=== PATIENT | male | born 1990 | race American Indian/Alaskan Native ===

== ENCOUNTER 2018-12-01 23:40 | Emergency (ER) | payer OTHER ==
[2018-12-02] MEDS ORDERED: TORADOL IM ONE (04:01)
--- NOTE | 2018-12-02 04:06 | Emergency Department Report ---
ED General Adult HPI - General Chief complaint: Headache Stated complaint: SHARP PAIN IN HEAD BODY PAIN ASTHMA Time Seen by Provider: 12/02/18 03:54 Source: patient Mode of arrival: Ambulatory Limitations: No Limitations - History of Present Illness Initial comments: Patient is a 28-year-old male who presents to the emergency room with complaints of a frontal headache that began 3 days ago. He has associated rhinorrhea, congestion, generalized body aches. He denies any fever, cough, sore throat. He states he has been taking Goody powder with some relief. He states he does have seasonal allergies and has tried taking Claritin without much relief. He states he has had a sick contact with someone with cold symptoms. He has a past medical history of asthma and bronchitis. He is a nonsmoker, nondrinker, denies drug use. - Related Data Previous Rx's Medication Instructions Recorded Last Taken Type Cetirizine HCl [Zyrtec 10mg tab] 10 mg PO DAILY #30 tablet 12/02/18 Unknown Rx Fluticasone [Flonase] 1 spray NS QDAY #1 bottle 12/02/18 Unknown Rx Allergies Allergy/AdvReac Type Severity Reaction Status Date / Time diphenhydramine Allergy Unknown Verified 12/02/18 00:02 [From Benadryl] Penicillins Allergy Unknown Verified 12/02/18 00:02 tramadol Allergy Unknown Verified 12/02/18 00:02 ED Review of Systems ROS: Stated complaint: SHARP PAIN IN HEAD BODY PAIN ASTHMA Other details as noted in HPI Comment: All other systems reviewed and negative ED Past Medical Hx - Past Medical History Previous Medical History?: Yes Hx Asthma: Yes (bronchitis) - Surgical History Past Surgical History?: No - Social History Smoking Status: Never Smoker Substance Use Type: None - Medications Home Medications: Home Medications Medication Instructions Recorded Confirmed Last Taken Type Cetirizine HCl [Zyrtec 10mg tab] 10 mg PO DAILY #30 tablet 12/02/18 Unknown Rx Fluticasone [Flonase] 1 spray NS QDAY #1 bottle 12/02/18 Unknown Rx ED Physical Exam - General Limitations: No Limitations General appearance: alert, in no apparent distress - Head Head exam: Present: atraumatic, normocephalic - Eye Eye exam: Present: PERRL, EOMI, other (dark circles under the bilateral eyes most likely allergy related, denies trauma ) - ENT ENT exam: Present: normal orophraynx, TM's normal bilaterally, normal external ear exam, other (pale, boggy turbinates bilaterally with clear nasal discharge, no TTP of the sinuses bilaterally) - Neck Neck exam: Present: normal inspection, full ROM. Absent: meningismus - Respiratory Respiratory exam: Present: normal lung sounds bilaterally. Absent: respiratory distress, wheezes, rales, rhonchi, stridor, chest wall tenderness, accessory muscle use, decreased breath sounds, prolonged expiratory - Cardiovascular Cardiovascular Exam: Present: regular rate, normal rhythm, normal heart sounds. Absent: systolic murmur, diastolic murmur, rubs, gallop - Neurological Exam Neurological exam: Present: alert, oriented X3 - Psychiatric Psychiatric exam: Present: normal affect, normal mood - Skin Skin exam: Present: warm, dry, intact ED Course Vital Signs 12/01/18 12/02/18 12/02/18 23:45 04:36 05:05 Temperature 98.3 F Pulse Rate 71 Respiratory 18 20 20 Rate Blood Pressure 128/76 Blood Pressure [Left] O2 Sat by Pulse 97 Oximetry 12/02/18 12/02/18 05:20 05:26 Temperature 98.6 F Pulse Rate 72 Respiratory 20 20 Rate Blood Pressure Blood Pressure 120/66 [Left] O2 Sat by Pulse 98 Oximetry ED Medical Decision Making - Lab Data Vital Signs 12/01/18 23:45 Temperature 98.3 F Pulse Rate 71 Respiratory 18 Rate Blood Pressure 128/76 O2 Sat by Pulse 97 Oximetry - Medical Decision Making Patient is a 28-year-old male who presents to the emergency room with complaints of a frontal headache that began 3 days ago. He has associated rhinorrhea, congestion, generalized body aches. He denies any fever, cough, sore throat. He states he has been taking Goody powder with some relief. He states he does have seasonal allergies and has tried taking Claritin without much relief. He states he has had a sick contact with someone with cold symptoms. He has a past medical history of asthma and bronchitis. He is a nonsmoker, nondrinker, denies drug use. vitals are normal. on exam: pale, boggy turbinates bilaterally with clear nasal discharge, no TTP of the sinuses bilaterally, lung sounds are clear bilaterally without w/r/r. pt given prescription for flonase and zyrtec for allergic rhinitis/seasonal allergies. advised to please take all medication as prescribed. Continue to drink plenty of water. Follow up with your primary care doctor in the next 2-3 days. Return to the emergency room for any new or worsening symptoms. Critical care attestation.: If time is entered above; I have spent that time in minutes in the direct care of this critically ill patient, excluding procedure time. ED Disposition Clinical Impression: Seasonal allergies Allergic rhinitis Qualifiers: Allergic rhinitis trigger: unspecified Allergic rhinitis seasonality: seasonal Qualified Code(s): J30.2 - Other seasonal allergic rhinitis Headache Qualifiers: Headache type: unspecified Headache chronicity pattern: acute headache Intractability: not intractable Qualified Code(s): R51 - Headache Disposition: DC- TO HOME OR SELFCARE Is pt being admited?: No Does the pt Need Aspirin: No Condition: Stable Instructions: Allergic Rhinitis (ED) Additional Instructions: Please take all medication as prescribed. Continue to drink plenty of water. Follow up with your primary care doctor in the next 2-3 days. Return to the emergency room for any new or worsening symptoms. Prescriptions: Fluticasone [Flonase] 1 spray NS QDAY #1 bottle Cetirizine HCl [Zyrtec 10mg tab] 10 mg PO DAILY #30 tablet Referrals: RUBÉN MICHELLE MD [Primary Care Provider] - 2-3 Days Forms: Work/School Release Form(ED) Time of Disposition: 04:05 Print Language: DUTCH
[2018-12-02] MEDS ORDERED: TORADOL PO ONE (04:37)
[2018-12-02 05:28] VITALS: BP 120/66
== END 2018-12-02 05:33 | disposition home or self-care (01) ==
LOC: ED 23:40
DX: J30.9 Allergic rhinitis, unspecified (principal); J30.2 Other seasonal allergic rhinitis; Z88.8 Allergy status to other drugs, medicaments and biological substances; Z88.0 Allergy status to penicillin; Z88.6 Allergy status to analgesic agent
CPT/HCPCS: 99282; J1885

== ENCOUNTER 2019-02-13 21:52 | Emergency (ER) | payer SELFPAY ==
[2019-02-13 21:59] VITALS: BP 145/95
== END 2019-02-13 23:30 | disposition left against medical advice (07) ==
LOC: ED 21:52
DX: R51 Headache (principal); Z53.21 Procedure and treatment not carried out due to patient leaving prior to being seen by health care provider